=== PATIENT | male | born 1975 | race Caucasian/White ===

== ENCOUNTER 2018-10-08 16:44 | Emergency (ER) | payer OTHER, SELFPAY ==
[2018-10-08 16:49] VITALS: BP 132/76; PULSE 79; RESP 16; TEMP 36.6; O2SAT 97
--- NOTE | 2018-10-08 17:04 | ED.GENADUL_ITS ---
Discharge Plan Disposition Patient Disposition: HOME Discharge Details Chief Complaint: Cellulitis Clinical Impression: Tick bite of calf Primary Care Provider: Danilo Dasilva ED Provider: Nick Frye Discharge Instructions Instructions: Tick Bite (ED) Referrals: Danilo Dasilva MD [Primary Care Provider] - 1 week Discharge Data Discharge Date/Time-TO BE ENTERED AT DEPARTURE: 10/08/18 17:15 Medical Decision Making This is a nontoxic-appearing 42-year-old gentleman with a tick bite to his right calf. No EM rash. Unknown duration of attachment. Will treat with one time doxycycline 200 mg p.o. he is stable for discharge at this time HPI General Date/Time Provider Initiated Documentation: 10/08/18 16:59 . HPI Narrative: Patient is a 42-year-old male with no significant past medical history who presents with a tick bite to the right calf. He is unsure how long the tick was attached. He feels that the head may still be attached. He noticed some mild redness over the area. No joint pain or swelling. No fever Related Data Allergies Allergy/AdvReac Type Severity Reaction Status Date / Time cashew nut Allergy Unverified 10/08/18 16:53 General Stated Complaint: Cellulitis LINDSAY: 4 Review of Systems Constitutional Denies chills, Denies fever(s) and Denies weakness Cardiovascular Denies edema Musculoskeletal Denies myalgias, Denies arthralgias and Denies joint swelling Integumentary/Breasts Reports new lesions (right calf) and Reports rash Neurologic Denies weakness [facility] Social History Smoking/Tobacco Use Status: Never Alcohol Intake: never Substance use type: does not use Do you feel safe at home: Yes Do you feel safe in your relationship?: Yes Exam Const General: cooperative and healthy appearing Orientation: alert, awake and oriented x3 HENMT Head: normal to inspection General nose exam: external nose normal Eyes General: appearance normal, both eyes and all related structures Periorbital: periorbital findings normal Neck Neck: normal visual inspection, full ROM and no lymphadenopathy Chest Chest: normal inspection of the chest Resp Effort & Inspection: normal respiratory effort Cardio Pulses: normal peripheral pulses Skin Other: Small circular erythema roughly 5 mm in diameter with no retained foreign body noted over the right calf. No EM rash Course Vital Signs Temperature 36.6 C 10/08/18 16:49 Pulse 79 10/08/18 16:49 Respiratory Rate 16 10/08/18 16:49 Blood Pressure 132/76 10/08/18 16:49 Pulse Oximetry 97 10/08/18 16:49 Temperature 36.6 C 10/08/18 16:49 Temperature Source Temporal Artery Scan 10/08/18 16:49 Pulse 79 10/08/18 16:49 Respiratory Rate 16 10/08/18 16:49 Blood Pressure 132/76 10/08/18 16:49 Blood Pressure Position Sitting 10/08/18 16:49 Pulse Oximetry 97 10/08/18 16:49 Oxygen Delivery Method Room Air 10/08/18 16:49 Oxygen Flow Rate 0 10/08/18 16:49 Pain Level 0 10/08/18 16:49
[2018-10-08] MEDS: Doxycycline Hyclate 100 MG CAP 200 MG PO (17:20)
== END 2018-10-08 17:15 | disposition home or self-care (01) ==
PROVIDERS: Emergency Provider Physician Assistant; PCP General Practice
DX: S80.862A Insect bite (nonvenomous), left lower leg, initial encounter (principal); W57.XXXA Bitten or stung by nonvenomous insect and other nonvenomous arthropods, initial encounter
CPT/HCPCS: 99282